=== PATIENT | female | born 1965 | race African-American/Black ===

== ENCOUNTER 2022-03-11 01:46 | Day surgery (SDC) | payer OTHER, SELFPAY ==
[2022-02-24 15:47] VITALS: BMI 25.4
[2022-03-11 07:46] VITALS: BP 153/95; PULSE 76; RESP 18; TEMP 36.1; O2SAT 98; BMI 24.7
[2022-03-11] MEDS: LACTATED RINGERS 1,000 ML 150 ML IV CONT (07:56)
--- NOTE | 2022-03-11 08:19 | PM.HPGS ---
History of Present Illness History of Present Illness Consent: Risks, benefits, and alternatives have been discussed and questions answered. Patient agrees to proceed with procedure. Chief complaint: neoplasm screening Narrative: Breanna Dempsey is a 56 year old female here for first screening colonoscopy Review of Systems Constitutional: Constitutional: Denies headache(s) and Denies weakness Eyes: Eyes: Denies blurry vision ENT: Reports Normal hearing present, Denies headache(s) and Denies neck pain Cardiovascular: Cardiovascular: Denies chest pain and Denies dyspnea Respiratory: Respiratory: Denies dyspnea Gastrointestinal: Gastrointestinal: Reports no additional gastrointestinal complaints Genitourinary: Genitourinary: Denies dysuria Musculoskeletal: Musculoskeletal: Denies neck pain Integumentary/Breasts: Skin/Breast: Denies dry skin Neurologic: Reports Normal hearing present, Denies headache(s) and Denies weakness Psychiatric: Psychiatric: Denies anxiety Endocrine: Endocrine: Denies change in body appearance Hematologic/Lymphatic: Hematologic/Lymphatic: Denies easy bleeding Allergic/Immunologic: Allergic/Immunologic: Denies urticaria PMF Past Medical History Medical History (Updated 03/11/22 @ 08:19 by Mele Pulido MD) Anemia BMI 25.0-25.9,adult Colon cancer screening Hypertension Mixed connective tissue disease Family History Family History Mother Hypertension Heart disease Father Diabetes mellitus Hypertension Kidney disease Social History Social History Smoking status: Never smoker Alcohol intake: never Substance use: never Substance use type: does not use Living arrangements: with family Additional occupation/education comments: youth counselor Gender identity (if verbalized by the patient): Female Spiritual care concerns: No Meds Home Medications and Allergies Home Medications Medication Instructions Recorded Confirmed Type hydroxychloroquine 200 mg tablet 200 mg PO DAILY 06/02/20 03/11/22 History acyclovir 400 mg tablet 1 tablet PO DAILY 02/24/22 03/11/22 History atorvastatin 10 mg tablet 1 tablet PO DAILY 02/24/22 03/11/22 History hydroxychloroquine 200 mg tablet 200 mg PO DAILY 02/24/22 03/11/22 History nifedipine 60 mg tablet,extended 1 tablet PO DAILY 02/24/22 03/11/22 History release omeprazole 20 mg capsule,delayed 1 cap PO DAILY 02/24/22 03/11/22 History release Allergies Allergy/AdvReac Type Severity Reaction Status Date / Time No Known Allergies Allergy Verified 03/11/22 07:46 Vital Signs Vital Signs - 24 hr 03/11/22 07:46 Temperature 96.9 F L Pulse Rate 76 Respiratory Rate 18 Blood Pressure 153/95 H Pulse Oximetry 98 Oxygen Delivery Room Air Exam Const: General: comfortable and no acute distress HENMT: General nose exam: Normal nares present Eyes: General: appearance normal, both eyes and all related structures Neck: Neck: no JVD Resp: Auscultation: clear to auscultation bilaterally Cardio: Rate: regular rate Rhythm: regular rhythm GI: Inspection: non-distended GI Palp: Yes Soft to palpation Skin: General skin exam: normal color Neuro: General: gait normal Speech: normal speech Extrem: General: normal to inspection Psych: Mental Status: mental status grossly normal Assessment and Plan Assessment and plan (1) Colon cancer screening: Code(s): Z12.11 - Encounter for screening for malignant neoplasm of colon Status: Acute Assessment and Plan: colonoscopy
--- NOTE | 2022-03-11 08:21 | P.PNAN_ITS ---
Anes - Initial Pre Proc Eval Procedure: Operation Date: 03/11/22 09:00 Proposed Procedures p Screening Colonoscopy - Mele Pulido MD Date/Time: 03/11/22 08:21 Surgeon: Mele Pulido MD Pre Op Diagnosis: neoplasm screening Patient Data Age: 56 Gender: F Height: 1.73 m Weight: 73.9 kg Last Vital Signs Temp 96.9 F L 03/11/22 07:46 Pulse 76 03/11/22 07:46 Resp 18 03/11/22 07:46 BP 153/95 H 03/11/22 07:46 Pulse Ox 98 03/11/22 07:46 O2 Del Method Room Air 03/11/22 07:46 Allergies Allergy/AdvReac Type Severity Reaction Status Date / Time No Known Allergies Allergy Verified 03/11/22 07:46 Home Medications Medication Instructions Recorded Confirmed Type hydroxychloroquine 200 mg tablet 200 mg PO DAILY 06/02/20 03/11/22 History acyclovir 400 mg tablet 1 tablet PO DAILY 02/24/22 03/11/22 History atorvastatin 10 mg tablet 1 tablet PO DAILY 02/24/22 03/11/22 History hydroxychloroquine 200 mg tablet 200 mg PO DAILY 02/24/22 03/11/22 History nifedipine 60 mg tablet,extended 1 tablet PO DAILY 02/24/22 03/11/22 History release omeprazole 20 mg capsule,delayed 1 cap PO DAILY 02/24/22 03/11/22 History release Patient hx anesthesia problems: none Family hx anesthesia problems: none Results Review: All pre-operative results and documents have been reviewed as part of the pre- operative evaluation. [facility] Past Medical History Medical History (Updated 03/11/22 @ 08:19 by Mele Pulido MD) Anemia BMI 25.0-25.9,adult Colon cancer screening Hypertension Mixed connective tissue disease Family History Family History Mother Hypertension Heart disease Father Diabetes mellitus Hypertension Kidney disease Social History Social History Smoking status: Never smoker Alcohol intake: never Substance use: never Substance use type: does not use Living arrangements: with family Additional occupation/education comments: youth counselor Gender identity (if verbalized by the patient): Female Spiritual care concerns: No Anes - Eval Final PreProcedure Day of Procedure 03/11/22 08:21 Patient weight: normal Heart: regular rate and rhythm Lungs: clear to auscultation Airway: Mallampati scale class II Neurological: alert and oriented Last oral intake: >/= 8 hours ASA classification: II Emergent: no Anesthetic plan: proceed Anesthesia type and monitoring: general GIVS and standard monitoring Results Review: All pre-operative results and documents have been reviewed as part of the pre- operative evaluation. Informed Consent: The patient's anesthetic plan and its attendant risks and benefits were discussed with the patient/family/POA. Questions were solicited and answers provided to the satisfaction of the patient/family/POA.
[2022-03-11 08:40] VITALS: BP 121/82; PULSE 67; RESP 19; O2SAT 100
[2022-03-11 08:50] VITALS: BP 132/89; PULSE 63; RESP 16; O2SAT 100
[2022-03-11 09:00] VITALS: BP 157/100; PULSE 59; RESP 18; O2SAT 100
== END 2022-03-11 09:11 | disposition home or self-care (01) ==
PROVIDERS: Visit Provider Internal Medicine Gastroenterology
PROC: 0DJD8ZZ Inspection of Lower Intestinal Tract, Via Natural or Artificial Opening Endoscopic (ICD-10-PCS; CPT 45378; principal; 2022-03-11 09:00)
DX: Z12.11 Encounter for screening for malignant neoplasm of colon (principal); K64.8 Other hemorrhoids; D64.9 Anemia, unspecified; I10 Essential (primary) hypertension; M35.9 Systemic involvement of connective tissue, unspecified
CPT/HCPCS: 45378; J2001; J2704; J7120